=== PATIENT | female | born 1955 | race African-American/Black ===

== ENCOUNTER 2017-08-06 18:18 | Emergency (ER) | payer OTHER ==
[2017-08-06] MEDS ORDERED: Ketorolac Tromethamine 30 MG/ML VIAL ONE (19:29)
--- NOTE | 2017-08-06 19:56 | RAD ---
RIGHT WRIST THREE VIEW: 08/06/17 HISTORY: Fall. COMPARISON: None. FINDINGS: Mildly comminuted intra-articular fracture distal radius with mild impaction dorsal angulation and do rsal displacement. Ulnar styloid appears to be intact as well as the scapholunate interval. IMPRESSION: Mildly impacted dorsal angulated and dorsally displaced intra-articular distal radius fracture. POS: [facility]
== END 2017-08-06 20:30 | disposition home or self-care (01) ==
LOC: NAV ERS 18:18
DX: S52.571A Other intraarticular fracture of lower end of right radius, initial encounter for closed fracture (principal); E03.9 Hypothyroidism, unspecified; E78.5 Hyperlipidemia, unspecified; Z79.82 Long term (current) use of aspirin; Z79.899 Other long term (current) drug therapy; W11.XXXA Fall on and from ladder, initial encounter
CPT/HCPCS: 29125; 96372; J1885

== ENCOUNTER 2018-01-08 14:35 | Outpatient (CLI) | payer OTHER ==
--- NOTE | 2018-01-08 15:30 | RAD ---
RIGHT FOOT THREE VIEWS: History: 62-year-old female with history of right foot pain over the top of the foot. FINDINGS/IMPRESSION: Mild degenerative changes. Calcaneal plantar and Achilles enthesophytes. No fracture or dislocation. POS: [facility]
--- NOTE | 2018-01-08 15:31 | RAD ---
LEFT FOOT THREE VIEWS: History: 62-year-old female with history of left foot pain. FINDINGS/IMPRESSION: Mild degenerative changes including some subchondral cystic changes of the first metatarsal at the me tatarsal phalangeal joint. Additionally there are Achilles and calcaneal plantar enthesophytes. No fr acture or dislocation or other acute process. POS: [facility]
== END 2018-01-08 14:36 | disposition home or self-care (01) ==
LOC: NAV RAD 14:35
PROVIDERS: ATTEND Family Medicine
DX: M79.671 Pain in right foot (principal); M19.071 Primary osteoarthritis, right ankle and foot; M19.072 Primary osteoarthritis, left ankle and foot

== ENCOUNTER → 2019-08-24 | Emergency (ER) | payer MEDICARE ==
--- NOTE | 2019-08-24 08:43 | RAD ---
LEFT KNEE 4 VIEWS: Date: 08/24/2019 HISTORY: Knee pain. FINDINGS: There is severe medial compartment joint space narrowing. There is mild lateral and patellofemoral de generative changes. IMPRESSION: Marked arthritic changes of the knee. No acute process. POS: [facility]
== END ==
LOC: NAV ERS 01:09
DX: S80.02XA Contusion of left knee, initial encounter (principal); I11.0 Hypertensive heart disease with heart failure; I50.9 Heart failure, unspecified; E78.00 Pure hypercholesterolemia, unspecified; E78.5 Hyperlipidemia, unspecified; E03.9 Hypothyroidism, unspecified; Z79.82 Long term (current) use of aspirin; Z79.899 Other long term (current) drug therapy; W19.XXXA Unspecified fall, initial encounter

== ENCOUNTER 2019-09-13 11:04 | Emergency (ER) | payer MEDICARE ==
[~2019-09-13 11:04] MED LIST: Iopamidol 370 76% 100 ML VIAL ONE
[2019-09-13 11:58] LABS: ALT (SGPT) 22 U/L (8-55); AST (SGOT) 21 U/L (5-34); Albumin 3.8 g/dL (3.4-4.8); Alkaline Phosphatase 83 U/L (40-110); Anion Gap 14 mmol/L (10-20); BUN (Urea Nitrogen) 19 mg/dL (9.8-20.1); Bilirubin, Total 0.4 mg/dL (0.2-1.2); Calc. Creatinine Clearance 0 mL/min (70-130); Carbon Dioxide 25 mmol/L (23-31); Chloride 104 mmol/L (98-107); Estimated GFR-MDRD 84; Globulin 3.4 g/dL (2.4-3.5); Glucose 124 mg/dL (80-115); Protein, Total 7.2 g/dL (6.0-8.3); Sodium 139 mmol/L (136-145)
[2019-09-13 12:13] LABS: Eosinophils 1 % (0-10); Lymphocytes 33 % (21-51); MDiff Complete? YES; Mean Corpuscular HGB CONC 30.3 g/dL (32.0-36.0); Mean Corpuscular Volume 92.6 fL (78.0-98.0); Mean Platelet Volume 8.5 fL (7.4-10.4); Monocytes 6 % (0-10); Neutrophil 60 % (42-75); Platelet Count 275 thou/uL (130-400); Platelet Morphology Comment Appears Adequate; White Blood Cell (WBC) Count 6.7 thou/uL (4.8-10.8)
[2019-09-13] MEDS ORDERED: Aspirin Chewable 81 MG TAB ONE (12:45)
[2019-09-13] MEDS ORDERED: Sodium Chloride 0.9% 500 ML ONE (13:00)
--- NOTE | 2019-09-13 13:28 | CT ---
Exam: CT angiogram of the chest HISTORY: Intermittent chest pain COMPARISON: None TECHNIQUE: CT angiogram of the chest is performed in the axial plane. Three-dimensional reformatted i mages are submitted for interpretation FINDINGS: Mediastinum: No mass, lymphadenopathy or hematoma. HEART: Normal size. No significant pericardial fluid. Aorta: No aneurysm or dissection Upper solid abdominal viscera: No abnormality enhancement. Trachea and central bronchi: Patent Pleural spaces: No effusion Lung parenchyma: Indeterminate left adrenal mass, measuring 1.8 x 1.7 cm Pneumothorax: None Osseous structures: No lytic or blastic lesions Pulmonary arteries: Adequate contrast opacification pulmonary arterial system to the level of segment al arteries. No filling defect to suggest pulmonary embolism IMPRESSION: 1. No evidence of pulmonary artery embolism to the level of the segmental arteries 2. Indeterminate left adrenal lesion. Nonemergent abdomen MRI or adrenal mass protocol CT is recommen ded
== END 2019-09-13 14:46 | disposition home or self-care (01) ==
LOC: NAV ERS 11:04
DX: R07.9 Chest pain, unspecified (principal); I11.0 Hypertensive heart disease with heart failure; I50.9 Heart failure, unspecified; E78.5 Hyperlipidemia, unspecified; E78.00 Pure hypercholesterolemia, unspecified; E03.9 Hypothyroidism, unspecified; Z79.82 Long term (current) use of aspirin; Z79.899 Other long term (current) drug therapy
CPT/HCPCS: 71275; 80053; 84484; 85025; 85379; 93005; J7030; Q9967

== ENCOUNTER 2020-05-20 09:52 | Emergency (ER) | payer MEDICARE ==
[2020-05-20] MEDS ORDERED: Pantoprazole 40 MG VIAL ONE (10:58)
[2020-05-20 11:05] LABS: #Basophils 0.1 thou/uL (0.0-0.2); #Eosinphils 0.2 thou/uL (0.0-0.7); #Lymphocytes 1.7 thou/uL (1.20-3.40); #Monocytes 0.5 thou/uL (0.11-0.59); #Neutrophils 5.7 thou/uL (1.40-6.50); %Basophils 1.8 % (0.0-1.0); %Eosinophils 2.3 % (0.0-10.0); %Lymphocytes 20.8 % (21.0-51.0); %Monocytes 5.7 % (0.0-10.0); %Neutrophils 69.4 % (42.0-75.0); Mean Corpuscular HGB CONC 31.3 g/dL (32.0-36.0); Mean Corpuscular Hemoglobin 28.4 pg (27.0-31.0); Mean Corpuscular Volume 90.7 fL (78.0-98.0); Mean Platelet Volume 7.3 fL (7.4-10.4); Platelet Count 314 thou/uL (130-400); RBC Distribution Width 11.9 % (11.5-14.5); Red Blood Cell (RBC) Count 4.57 mill/uL (4.20-5.40); White Blood Cell (WBC) Count 8.2 thou/uL (4.8-10.8)
[2020-05-20 11:17] LABS: ALT (SGPT) 19 U/L (8-55); AST (SGOT) 18 U/L (5-34); Alkaline Phosphatase 79 U/L (40-110); Anion Gap 13 mmol/L (10-20); BUN (Urea Nitrogen) 14 mg/dL (9.8-20.1); Bilirubin, Total 0.5 mg/dL (0.2-1.2); Calc. Creatinine Clearance 0 mL/min (70-130); Calcium 9.3 mg/dL (7.8-10.44); Carbon Dioxide 27 mmol/L (23-31); Globulin 3.3 g/dL (2.4-3.5); Glucose 114 mg/dL (80-115); Lipase 27 U/L (8-78); Potassium 3.8 mmol/L (3.5-5.1); Protein, Total 7.3 g/dL (5.8-8.1)
[2020-05-20 11:19] LABS: Chloride 103 mmol/L (98-107); Sodium 139 mmol/L (136-145)
--- NOTE | 2020-05-20 12:36 | CT ---
CT ABDOMEN AND PELVIS WITH IV CONTRAST 05/20/2020 CLINICAL INFORMATION: Epigastric abdominal pain with radiation of pain to the umbilicus. COMPARISON: None. Technique: Multiple contiguous axial CT images are obtained through the abdomen and pelvis with IV contrast. Cor onal reformatted images are provided. FINDINGS: Lower Chest: Lung bases are clear. Vessels: Vascular calcifications in the abdominal aorta and iliac arteries. Abdomen: Portal vein:Patent Gallbladder: Within normal limits for CT imaging. Liver: within normal limits. Spleen: within normal limits. Pancreas: within normal limits. Adrenals: 1.7 cm indeterminate left adrenal lesion present. Right adrenal gland has a normal CT appea christopher. Kidneys: Subcentimeter too small to characterize hypodense lesions midportion each kidney. Bowel: Evidence of colonic diverticulosis. There is circumferential bowel wall thickening involving t he mid descending colon with adjacent pericolonic inflammatory changes suggesting diverticulitis. Small bowel is normal in caliber. Small hiatal hernia is present. Appendix: The appendix is visualized and normal in caliber. Peritoneum: No ascites or free air; no fluid collection. Mesentery and Retroperitoneum: No enlarged mesenteric or retroperitoneal lymph nodes. Abdominal Wall: within normal limits. Pelvis: Reproductive Organs: Heterogeneous and lobulated appearance of the uterus which may represent multipl e uterine fibroids. This can be confirmed with pelvic ultrasound. Bladder: There is no urinary bladder wall thickening, but there is minimal adjacent inflammatory salguero ges. Cystitis in the correct clinical scenario is a possibility. Bones: Degenerative changes in the spine. No suspicious lytic or sclerotic osseous lesion is identifi ed IMPRESSION: 1. Indeterminate left adrenal nodule. MRI abdomen versus CT scanning following the adrenal mass artemio col is recommended for further evaluation and characterization of this nodule. 2. Diverticulitis involving the descending colon. Follow-up evaluation is recommended after treatment to ensure resolution of colonic wall thickening. No free intraperitoneal focus of gas is seen, and there is no fluid collection seen to suggest an abscess. 3. Heterogeneous and lobulated appearance of uterus likely due to multiple uterine fibroids. Nonemerg ent pelvic ultrasound is suggested for further evaluation. 4. Too small to characterize hypodense lesions in each kidney. 5. Small hiatal hernia.
[2020-05-20] MEDS ORDERED: Mag-Al Plus 1200 MG/1200 MG/120 MG/30 ML UDCUP ONE (12:39)
[2020-05-20] MEDS ORDERED: Lidocaine Viscous Sol 2% 15 ml UD Cup ONE (12:39)
[2020-05-20 12:42] LABS: Bilirubin Negative (Negative); Blood, Urine Trace (Negative); Clarity Clear (Clear); Glucose, Urine (Dipstick) Negative (Negative); Ketone, Urine Negative (Negative); Leukocyte Negative (Negative); Nitrite Negative (Negative); Protein, Urine (Dipstick) Negative (Neg-Trace); Specific Gravity, Urine 1.015 (1.005-1.030); pH, Urine 6.5 (5.0-9.0)
[2020-05-20 12:55] LABS: RBC/HPF 0-3 HPF (0-3); Squamous Epithelial 0-3 HPF (0-3)
== END 2020-05-20 14:45 | disposition home or self-care (01) ==
LOC: NAV ERS 09:52
DX: K29.00 Acute gastritis without bleeding (principal); K57.32 Diverticulitis of large intestine without perforation or abscess without bleeding; E27.8 Other specified disorders of adrenal gland; I11.0 Hypertensive heart disease with heart failure; I50.9 Heart failure, unspecified; E78.5 Hyperlipidemia, unspecified; E78.00 Pure hypercholesterolemia, unspecified; E03.9 Hypothyroidism, unspecified; Z79.82 Long term (current) use of aspirin; Z79.899 Other long term (current) drug therapy
CPT/HCPCS: 74177; 80053; 81003; 81015; 83690; 84484; 85025; 93005; 96365; 96375; C9113

== ENCOUNTER 2021-06-25 12:18 | Emergency (ER) | payer MEDICARE ==
[2021-06-25 13:11] LABS: #Basophils 0.1 thou/uL (0.0-0.2); #Eosinphils 0.2 thou/uL (0.0-0.7); #Lymphocytes 1.8 thou/uL (1.20-3.40); #Monocytes 0.6 thou/uL (0.11-0.59); #Neutrophils 3.1 thou/uL (1.40-6.50); %Basophils 1.6 % (0.0-1.0); %Eosinophils 3.5 % (0.0-10.0); %Lymphocytes 31.4 % (21.0-51.0); %Monocytes 10.2 % (0.0-10.0); %Neutrophils 53.3 % (42.0-75.0); Hemoglobin 12.4 g/dL (12.0-16.0); Mean Corpuscular HGB CONC 30.6 g/dL (32.0-36.0); Mean Corpuscular Hemoglobin 28.5 pg (27.0-31.0); Mean Corpuscular Volume 92.9 fL (78.0-98.0); Mean Platelet Volume 7.7 fL (7.4-10.4); Platelet Count 269 thou/uL (130-400); RBC Distribution Width 11.9 % (11.5-14.5); Red Blood Cell (RBC) Count 4.37 mill/uL (4.20-5.40); White Blood Cell (WBC) Count 5.7 thou/uL (4.8-10.8)
[2021-06-25] MEDS ORDERED: Ketorolac Tromethamine 30 MG/ML VIAL ONE (13:11)
[2021-06-25 13:23] LABS: ALT (SGPT) 17 U/L (8-55); AST (SGOT) 17 U/L (5-34); Albumin 3.7 g/dL (3.4-4.8); Alkaline Phosphatase 66 U/L (40-110); Anion Gap 12 mmol/L (10-20); BUN (Urea Nitrogen) 11 mg/dL (9.8-20.1); Bilirubin, Total 0.4 mg/dL (0.2-1.2); Calc. Creatinine Clearance 0 mL/min (70-130); Calcium 9.6 mg/dL (7.8-10.44); Carbon Dioxide 28 mmol/L (23-31); Chloride 104 mmol/L (98-107); Globulin 3.3 g/dL (2.4-3.5); Glucose 100 mg/dL (80-115); Potassium 3.7 mmol/L (3.5-5.1); Sodium 140 mmol/L (136-145)
[2021-06-25 13:43] LABS: Bilirubin Negative (Negative); Blood, Urine Negative (Negative); Clarity Clear (Clear); Glucose, Urine (Dipstick) Negative (Negative); Ketone, Urine Negative (Negative); Leukocyte Negative (Negative); Nitrite Negative (Negative); Protein, Urine (Dipstick) Negative (Neg-Trace); Urobilinogen 0.2 mg/dL (Less than 2)
== END 2021-06-25 15:35 | disposition home or self-care (01) ==
LOC: NAV ERS 12:18
DX: K57.30 Diverticulosis of large intestine without perforation or abscess without bleeding (principal); I11.0 Hypertensive heart disease with heart failure; I50.9 Heart failure, unspecified; E78.00 Pure hypercholesterolemia, unspecified; E78.5 Hyperlipidemia, unspecified; E03.9 Hypothyroidism, unspecified; Z79.82 Long term (current) use of aspirin; Z79.890 Hormone replacement therapy; Z79.899 Other long term (current) drug therapy
CPT/HCPCS: 74177; 80053; 81003; 85025; 96374; J1885; Q9967

== ENCOUNTER 2021-07-01 04:26 | Emergency (ER) | payer MEDICARE ==
[2021-07-01] MEDS ORDERED: Ketorolac Tromethamine 30 MG/ML VIAL ONE (05:05)
[2021-07-01] MEDS ORDERED: Sodium Chloride 0.9% 1,000 ML ONE (05:05)
[2021-07-01 05:28] LABS: #Basophils 0.1 thou/uL (0.0-0.2); #Eosinphils 0.1 thou/uL (0.0-0.7); #Lymphocytes 1.8 thou/uL (1.20-3.40); #Monocytes 0.6 thou/uL (0.11-0.59); #Neutrophils 3.6 thou/uL (1.40-6.50); %Basophils 2.2 % (0.0-1.0); %Eosinophils 2.4 % (0.0-10.0); %Lymphocytes 28.2 % (21.0-51.0); %Monocytes 10.3 % (0.0-10.0); Hemoglobin 13.2 g/dL (12.0-16.0); Mean Corpuscular HGB CONC 30.7 g/dL (32.0-36.0); Mean Corpuscular Hemoglobin 28.5 pg (27.0-31.0); Mean Corpuscular Volume 92.8 fL (78.0-98.0); Mean Platelet Volume 8.6 fL (7.4-10.4); Platelet Count 275 thou/uL (130-400); RBC Distribution Width 11.9 % (11.5-14.5); Red Blood Cell (RBC) Count 4.62 mill/uL (4.20-5.40); White Blood Cell (WBC) Count 6.2 thou/uL (4.8-10.8)
[2021-07-01 05:33] LABS: ALT (SGPT) 33 U/L (8-55); AST (SGOT) 36 U/L (5-34); Alkaline Phosphatase 65 U/L (40-110); Anion Gap 15 mmol/L (10-20); BUN (Urea Nitrogen) 12 mg/dL (9.8-20.1); Bilirubin, Total 0.5 mg/dL (0.2-1.2); Calc. Creatinine Clearance 0 mL/min (70-130); Calcium 9.8 mg/dL (7.8-10.44); Carbon Dioxide 25 mmol/L (23-31); Chloride 100 mmol/L (98-107); Globulin 3.7 g/dL (2.4-3.5); Glucose 107 mg/dL (80-115); Lipase 17 U/L (8-78); Potassium 3.5 mmol/L (3.5-5.1); Protein, Total 7.7 g/dL (5.8-8.1); Sodium 136 mmol/L (136-145)
[2021-07-01 06:16] LABS: Bilirubin Negative (Negative); Blood, Urine Moderate (Negative); Clarity Clear (Clear); Glucose, Urine (Dipstick) Negative (Negative); Ketone, Urine Negative (Negative); Leukocyte Negative (Negative); Nitrite Negative (Negative); Protein, Urine (Dipstick) Negative (Neg-Trace); Urobilinogen 0.2 mg/dL (Less than 2); pH, Urine 5.5 (5.0-9.0)
[2021-07-01 06:22] LABS: Bacteria/HPF None Seen HPF (None Seen); RBC/HPF 0-3 HPF (0-3); WBC/HPF 0-3 HPF (0-3); Yeast-Budding Rare HPF (None Seen)
[2021-07-01] MEDS ORDERED: Dicyclomine 20 MG/2 ML VIAL ONE (07:22)
[2021-07-01] MEDS ORDERED: Lidocaine Viscous Sol 2% 15 ml UD Cup ONE (07:40)
[2021-07-01] MEDS ORDERED: Mag-Al Plus 1200 MG/1200 MG/120 MG/30 ML UDCUP ONE (07:40)
[2021-07-01] MEDS ORDERED: Iopamidol 370 76% 100 ML VIAL ONE (09:00)
== END 2021-07-01 08:09 | disposition home or self-care (01) ==
LOC: NAV ERS 04:26
DX: R10.13 Epigastric pain (principal); R10.12 Left upper quadrant pain; I11.0 Hypertensive heart disease with heart failure; I50.9 Heart failure, unspecified; E78.5 Hyperlipidemia, unspecified; E78.00 Pure hypercholesterolemia, unspecified; E03.9 Hypothyroidism, unspecified; Z79.82 Long term (current) use of aspirin; Z79.890 Hormone replacement therapy; Z79.899 Other long term (current) drug therapy; Z87.891 Personal history of nicotine dependence
CPT/HCPCS: 74177; 80053; 81003; 81015; 83690; 85025; 93005; 96372; 96374; J0500; J1885; J7050; Q9967

== ENCOUNTER 2021-11-12 18:34 | Emergency (ER) | payer MEDICARE ==
[2021-11-12 19:30] LABS: Mean Corpuscular Hemoglobin 28.3 pg (27.0-31.0); Mean Corpuscular Volume 94.3 fL (78.0-98.0); Red Blood Cell (RBC) Count 4.26 mill/uL (4.20-5.40); White Blood Cell (WBC) Count 7.4 thou/uL (4.8-10.8)
[2021-11-12 19:31] LABS: #Basophils 0.1 thou/uL (0.0-0.2); #Eosinphils 0.2 thou/uL (0.0-0.7); #Monocytes 0.6 thou/uL (0.11-0.59); #Neutrophils 4.5 thou/uL (1.40-6.50); %Basophils 0.9 % (0.0-1.0); %Eosinophils 2.9 % (0.0-10.0); %Lymphocytes 27.1 % (21.0-51.0); %Monocytes 7.7 % (0.0-10.0); %Neutrophils 61.4 % (42.0-75.0); Manual Diff?? NO; Mean Platelet Volume 8.5 fL (7.4-10.4); Platelet Count 256 thou/uL (130-400); RBC Distribution Width 12.6 % (11.5-14.5)
[2021-11-12 19:40] LABS: ALT (SGPT) 21 U/L (8-55); AST (SGOT) 19 U/L (5-34); Albumin 3.7 g/dL (3.4-4.8); Alkaline Phosphatase 80 U/L (40-110); Anion Gap 17 mmol/L (10-20); BUN (Urea Nitrogen) 16 mg/dL (9.8-20.1); Bilirubin, Total 0.3 mg/dL (0.2-1.2); Calc. Creatinine Clearance 0 mL/min (70-130); Calcium 10.1 mg/dL (7.8-10.44); Carbon Dioxide 27 mmol/L (23-31); Chloride 101 mmol/L (98-107); Estimated GFR 69; Globulin 3.3 g/dL (2.4-3.5); Glucose 128 mg/dL (80-115); Potassium 3.8 mmol/L (3.5-5.1); Sodium 141 mmol/L (136-145)
[2021-11-12 19:52] LABS: Bilirubin Negative (Negative); Blood, Urine Trace (Negative); Clarity Clear (Clear); Glucose, Urine (Dipstick) Negative (Negative); Ketone, Urine Negative (Negative); Leukocyte Negative (Negative); Nitrite Negative (Negative); Protein, Urine (Dipstick) Negative (Neg-Trace)
[2021-11-12] MEDS ORDERED: Cipro 250 MG TAB ONE (19:54)
[2021-11-12] MEDS ORDERED: metroNIDAZOLE 500 MG TAB ONE (19:54)
[2021-11-12 19:56] LABS: Bacteria/HPF Rare-Few HPF (None Seen); RBC/HPF 0-3 HPF (0-3); Squamous Epithelial 0-3 HPF (0-3); WBC/HPF 0-3 HPF (0-3)
== END 2021-11-12 20:00 | disposition home or self-care (01) ==
LOC: NAV ERS 18:34
DX: R10.33 Periumbilical pain (principal); E78.00 Pure hypercholesterolemia, unspecified; I11.0 Hypertensive heart disease with heart failure; I50.9 Heart failure, unspecified; Z79.899 Other long term (current) drug therapy
CPT/HCPCS: 80053; 81003; 81015; 85025; 99284

== ENCOUNTER 2024-12-20 21:22 | Emergency (ER) | payer MEDICARE | END 2024-12-20 22:00 | disposition left against medical advice (07) | LOC: NAV ERS 21:22 | DX: Z53.21 Procedure and treatment not carried out due to patient leaving prior to being seen by health care provider (principal) ==